=== PATIENT | female | born 1955 | race Caucasian/White ===

== ENCOUNTER → 2018-05-22 | Outpatient (CLI) | payer OTHER | LOC: M WHC 10:15 | DX: Z12.31 Encounter for screening mammogram for malignant neoplasm of breast (principal) | CPT/HCPCS: 77067 ==

== ENCOUNTER 2019-10-12 13:38 | Inpatient (IN) | payer OTHER ==
[~2019-10-12] VITALS: Ht 157.5 cm; Wt 108.3 kg
[2019-10-12] MEDS: amLODIPine 10 MG TAB PO SCH (09:00)
[2019-10-12] MEDS: FOLIC ACID 1 MG TAB PO SCH (09:00)
[2019-10-12] MEDS: SIMVASTATIN 40 MG TAB PO SCH (09:00)
[2019-10-12] MEDS ORDERED: PRED10TA2 PO ×2 (14:04)
[2019-10-12] MEDS ORDERED: SULI200T PO (14:04)
[2019-10-12] MEDS ORDERED: CHLO125TA PO (14:04)
[2019-10-12] MEDS ORDERED: METH2.5T48 PO (14:04)
[2019-10-12] MEDS ORDERED: LOTR10CA2 PO (14:04)
[2019-10-12] MEDS ORDERED: ALBU8.5H PO (14:04)
[2019-10-12] MEDS ORDERED: HYDR200T3 PO (14:04)
[2019-10-12] MEDS ORDERED: SIMV40TA20 PO (14:04)
[2019-10-12] MEDS ORDERED: FOLI1TAB11 PO (14:04)
[2019-10-12] MEDS ORDERED: LEVO750T13 PO (14:04)
[2019-10-12] MEDS ORDERED: NS 1,000 ML IV SCH (14:47)
[2019-10-12 14:57] LABS: CK-MB VALUE MASS < 1.0 NG/ML (<3.6); CPK CREATINE PHOSPHOKINASE 115 U/L (26-192); FREE T4 1.22 NG/DL (0.76-1.46); MB/CK RELATIVE INDEX 0.87 (< OR =4); THYROID STIMULATING HORMONE 0.663 uIU/ML (0.358-3.740); TROPONIN I < 0.02 NG/ML (< 0.10)
[2019-10-12] MEDS: NS 1,000 ML IV SCH ×2 (17:30→20:09)
[2019-10-12] MEDS ORDERED: ACETAMINOPHEN TAB 650MG DOSE (2X325MG) PO PRN (17:30)
[2019-10-12 17:59] LABS: INR 1.23; PROTHROMBIN TIME 15.2 SECONDS (11.8-14.0)
[2019-10-12 18:00] LABS: PARTIAL THROMBOPLASTIN TIME 35.4 SECONDS (25.0-38.4)
[2019-10-12 18:02] LABS: D-DIMER QUANT 2253.88 ng/ml (<500)
[2019-10-12 18:03] LABS: PLATELET COUNT, AUTOMATED 47 10^3/uL (150-450)
--- NOTE | 2019-10-12 18:05 | HPEPDOC ---
General Date of Admission Oct 12, 2019 at 17:29 Date of Service: Oct 12, 2019 Chief Complaint The patient is a 64-year-old female Who presented to the ER with progressive SOB / fever / chills History of Present Illness Patient is a 64-year-old female with past medical history of hypertension, dyslipidemia and rheumatoid arthritis who presented to the emergency room after experiencing a week of fevers, severe chills and shortness of breath. Patient reported that last Monday she had a sudden onset of fevers, shortness of breath and body chills. . She reported that she called telemedicine and was prescribed Tamiflu for suspected flu without testing. Patient completed a course of 5 days of Tamiflu. She continued to experience worsening fevers and progressive shortness of breath. Patient had reported that the highest temperature she had measured at home was 106.9F measured orally. Her checked her temperature this morning and was noted to be 98.6 orally. Patient had seen urgent care today with prescribed her Levaquin, Albuterol inhaler and Prednisone 10. She had taken all of this this morning, but failed to improve and came to the emergency room for further evaluation. Patient denies any chest pain or palpitations. Reports that her shortness of breath is progressive and she does report a cough that is minimally productive. She denies any blood or any color to her sputum Patient denies any vomiting but does report some nausea. Denies abdominal pain, constipation, diarrhea, or urinary discomfort. Reports that her appetite is poor over the last 7 days and denies any significant changes in her weight. Patient reports no recent travel and denies exposure dining with similar symptoms. Home Medications Scheduled Amlodipine Besylate/Benazepril (Lotrel 10-40 mg Capsule) 1 Each Capsule, 1 CAP PO DAILY, (Reported) Chlorthalidone (Chlorthalidone) 25 Mg Tablet, 25 MG PO DAILY, (Reported) Folic Acid (Folic Acid) 1 Mg Tablet, 1 MG PO DAILY, (Reported) Hydroxychloroquine Sulfate (Hydroxychloroquine Sulfate) 200 Mg Tablet, 400 MG PO DAILY, (Reported) Levofloxacin (Levofloxacin) 750 Mg Tablet, 750 MG PO DAILY, (Reported) Methotrexate Sodium (Methotrexate) 2.5 Mg Tablet, 20 MG PO 1XWK, (Reported) MONDAY Prednisone (Prednisone) 10 Mg Tablet, 20 MG PO BID, (Reported) Simvastatin (Simvastatin) 40 Mg Tablet, 40 MG PO DAILY, (Reported) Scheduled PRN Albuterol Sulfate (Albuterol Sulfate Hfa) 8.5 Gm Hfa.aer.ad, 2 PUFFS PO Q4H PRN for SOB/WHEEZING, (Reported) Sulindac (Sulindac) 200 Mg Tablet, 200 MG PO BID PRN for ARTHRITIS PAIN, STIFFNESS, (Reported) Allergies Coded Allergies: No Known Allergies (Unverified , 10/12/19) Past Medical History Medical History Hypertension, dyslipidemia and rheumatoid arthritis Surgical History Reports no prior surgeries Family History - Reports that her mother and father had a history of heart disease - No history of malignancies Social History - Denies the use of alcohol, tobacco or illicit drugs - Denies recent travel or sick contacts - Lives with in [place] - Occupation; 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 [employer] Review of Systems Other systems 10 point review of systems complete, all negative otherwise stated in HPI Vital Signs - Vitals: BP 162/84, HR 98, RR 24, Sat 92%RA, Temp 100.7 - General: Lying in bed, Short of breath, AAOx3 - HEENT: NC, AT, PERRLA - CVS: RRR, +S1S2 - Lungs: Fair air entry bilaterally, No appreciable wheezing / rales / rhonchi - Abdomen: Soft, Non-distended, No tenderness on palpation of all 4 quadrants - Extremities: No lower extremity edema, No calf tenderness - Neuro: No focal motor or sensory deficit - Skin: No visible rashes Laboratory Data Labs 24H Laboratory Tests 2 10/12/19 14:13: Prothrombin Time 15.2H, Prothromb Time International Ratio 1.23, Activated Partial Thromboplast Time 35.4, D-Dimer, Quantitative 2253.88H, Lactic Acid Level 1.3 10/12/19 14:33: Total Creatine Kinase 115, Creatine Kinase MB < 1.0, Creatine Kinase MB Relative Index 0.87, Troponin I < 0.02, Thyroid Stimulating Hormone (TSH) 0.663, Free Thyroxine 1.22 10/12/19 17:01: Urine Color HAKEEM, Urine Appearance HAZY, Urine pH 5.0, Urine Specific Fonda 1.014, Urine Protein NEGATIVE, Urine Glucose (UA) NEGATIVE, Urine Ketones NEGATIVE, Urine Blood 2+H, Urine Nitrite NEGATIVE, Urine Bilirubin NEGATIVE, Urine Urobilinogen 0.2, Urine Leukocyte Esterase TRACEH, Urine WBC (Auto) 17H, Urine RBC (Auto) 9H, Urine Hyaline Casts (Auto) 0, Urine Bacteria (Auto) 3+H, Urine Squamous Epithelial Cells 6, Urine Sperm (Auto) CBC/BMP Microbiology Microbiology 10/12/19 Virus Detection (PCR), Received Pending 10/12/19 Urine Culture, Received Pending 10/12/19 Respiratory Virus (PCR), Received Pending 10/12/19 Respiratory Virus Panel (PCR) (MANSI) - Final, Complete 10/12/19 Blood Culture, Received Pending 10/12/19 Blood Culture, Received Pending Plan / VTE VTE Prophylaxis Ordered?: Yes Plan Plan Shortness of breath - possibly 2/2 viral illness - Patient has presented to the ER after experiencing a week of recurrent fevers, chills and progressive shortness of breath - Patient remains hemodynamically stable and is febrile in the emergency room - Physical without any significant adventitious lung sounds - Profound leukocytosis with neutrophil predominance noted - UA without any significant signs of infection; urine culture pending - Respiratory panel 10/11: Negative - CXR 10/11: There is no acute cardiopulmonary disease. - CT chest 10/11: Likely sub-segmental atelectasis left upper lobe. No abnormal patchy ground-glass opacities - Will check Blood cultures, Sputum cultures, COVID19, Strep throat, Procalcitonin, MRSA screen - Will check ESR / CRP - Will start Ceftriaxone and Azithromycin for now PRASANTH - possibly 2/2 pre-renal etiology - 2/2 volume loss - 2/2 fevers - Patient baseline creatinine of 0.5; creatinine on admission of 1.7 - Will hold nephrotoxic medications - Will check renal US - Will start IV fluid hydration Thrombocytopenia - No evidence of bleeding - Will check DIC profile - Will treat for possible infection (As stated above) Normocytic anemia - Hg appears to be lower compared to baseline from 11/2014 of 13.7 - Will continue to monitor at this time Hypokalemia - Will supplement Elevated Bilirubin - Will check CT abdomen / pelvis - Will check US liver - Will check haptoglobin / jasper Hypertension - BP moderately elevated - Will hold Chlorthalidone / Benazapril for now (re: PRASANTH) - Will c/w Amlodipine DLP - c/w Simvastatin Rheumatoid arthritis - Will hold Hydroxychlorquine / Methotrexate at this time - Will check ESR / CRP DVT prophylaxis - Will start TEDs / BLANCA Garcia MD Oct 12, 2019 18:05
[2019-10-12 18:21] LABS: ERYTHROCYTE SEDIMENTATION RATE > 140 mm/hr (0-30)
[2019-10-12] MEDS ORDERED: LABETALOL HCL 100 MG/20 ML VIAL IV ONE (18:45)
[2019-10-12] MEDS ORDERED: POTASSIUM CHLORIDE 10 MEQ SR TABLET PO ONE (19:00)
--- NOTE | 2019-10-12 19:00 | REPVR ---
PROCEDURE INFORMATION: Exam: US Duplex Lower Extremity Veins Exam date and time: 10/12/2019 6:20 PM Age: 64 years old Clinical indication: Leg, lower; Bilateral; Patient HX: PT states no pain or swelling in legs; Additional info: Evaluate for dvt TECHNIQUE: Imaging protocol: Real-time duplex ultrasound of the Lower Extremities with 2-D maldonado scale, color Doppler flow and spectral waveform analysis with image documentation. Complete exam focused on the bilateral lower extremity veins. COMPARISON: No relevant prior studies available. FINDINGS: Right deep veins: Unremarkable. The common femoral, femoral, and popliteal veins are patent without thrombus. Normal compressibility, augmentation response and Doppler waveforms. Right superficial veins: Saphenofemoral junction is patent without thrombus. Left deep veins: Unremarkable. The common femoral, femoral, and popliteal veins are patent without thrombus. Normal compressibility, augmentation response and Doppler waveforms. Left superficial veins: Saphenofemoral junction is patent without thrombus. IMPRESSION: No deep vein thrombosis in the veins visualized in both lower extremities. Electronically signed by: Eduardo Campbell On 10/12/2019 18:59:45 PM
[2019-10-12] MEDS: AZITHROMYCIN INJ 500 MG, VIAL MATE ADAPTER 1 EACH in D5W 250 ML IV SCH (19:02)
--- NOTE | 2019-10-12 19:02 | IPNPDOC ---
Text Note Date of Service The patient was seen on 10/12/19. NOTE Called and discussed case with Oncology, Dr. Brian Coello, about the potential th ought of TTP given Uremia, Anemia, Thrombocytopenia, Fevers ... but no AMS Work up for TTP is pending at this time; LDH / Haptoglobin / Valente pending At this time advised to hold off on transfer until it becomes clear this is TTP. Will repeat CBC / CMP now to evaluate renal function improvement / anemia / peripheral smear / adams13 activity VS,Fishbone, I+O VS, Fishbone, I+O Laboratory Tests 10/12/19 14:13 Vital Signs Date Time Temp Pulse Resp B/P (MAP) Pulse Ox O2 Delivery O2 Flow Rate FiO2 10/12/19 15:36 98 10/12/19 15:20 162/84 (110) 10/12/19 15:10 92 10/12/19 14:18 Room Air 10/12/19 14:18 99.6 10/12/19 13:38 26 BLANCA JI MD Oct 12, 2019 19:02
--- NOTE | 2019-10-12 19:09 | REPVR ---
PROCEDURE INFORMATION: Exam: CT Abdomen And Pelvis Without Contrast Exam date and time: 10/12/2019 6:50 PM Age: 64 years old Clinical indication: Abnormal findings; Abnormal lab test; Elevated liver enzymes; Additional info: Elevated bilirubin / alk phos TECHNIQUE: Imaging protocol: Computed tomography of the abdomen and pelvis without contrast. Radiation optimization: All CT scans at this facility use at least one of these dose optimization techniques: automated exposure control; mA and/or kV adjustment per patient size (includes targeted exams where dose is matched to clinical indication); or iterative reconstruction. COMPARISON: No relevant prior studies available. FINDINGS: Lungs: The imaged portions of the lung bases are clear. Heart: No cardiomegaly is noted. There is a trace pericardial effusion. Diaphragm: Intact. Liver: Unremarkable. No liver lesion is identified. The contour of the liver is smooth. No hepatomegaly is noted. Gallbladder and bile ducts: No calcified gallstones are noted. There is mild inflammatory fat stranding around the gallbladder, which can be seen with cholecystitis (images 42-50 of the coronal series 202). No dilation of the intrahepatic or extrahepatic bile ducts is noted. Pancreas: Unremarkable. No dilation of the main pancreatic duct is noted. There is no inflammatory fat stranding around the pancreas to suggest acute pancreatitis. Spleen: Unremarkable. No splenomegaly is noted. Adrenals: Normal. No adrenal mass is noted. Kidneys and ureters: There are benign-appearing cysts in the left kidney measuring up to 5.2 cm for which follow-up is not necessary. There is mild left hydroureteronephrosis. No stones are noted in the kidneys or ureters. Stomach and bowel: There is no evidence for a bowel obstruction, diverticulosis, diverticulitis, colitis, perforated viscus, pneumatosis intestinalis, intussusception, or volvulus. Appendix: The retrocecal appendix is normal. No evidence for appendicitis. Intraperitoneal space: No free air. No fluid collection. Retroperitoneal space: No fluid collection. No mass. Vasculature: There is no abdominal aortic aneurysm or intramural hematoma. There are mild atherosclerotic calcifications. Lymph nodes: No enlarged lymph nodes. Bladder: There is a 4 mm calculus in the urinary bladder just distal to the left ureterovesical junction. Reproductive: The uterus is anteverted. The ovaries are unremarkable. Bones/joints: No fracture or dislocation is noted. There is no suspicious osteolytic or osteoblastic lesion. There is a mild levoscoliosis at the thoracolumbar junction and degenerative changes in the lower thoracic spine and in the lumbar spine. There is mild osteoarthritis of the right hip joint. Soft tissues: There are small bilateral fat containing indirect inguinal hernias. IMPRESSION: 1. 4 mm calculus in the urinary bladder just distal to the left ureterovesical junction and mild left hydroureteronephrosis. 2. Mild inflammatory fat stranding around the gallbladder, which can be seen with cholecystitis. 3. Small bilateral fat containing indirect inguinal hernias. Electronically signed by: Eduardo Campbell On 10/12/2019 19:09:50 PM
[2019-10-12 20:00] VITALS: O2SAT 96
--- NOTE | 2019-10-12 20:21 | REPVR ---
PROCEDURE INFORMATION: Exam: US Abdomen Complete Exam date and time: 10/12/2019 8:01 PM Age: 64 years old Clinical indication: Abnormal findings; Abnormal lab test; Abnormal kidney function lab tests and elevated liver enzymes; Additional info: Elevated bilirubin / baldomero TECHNIQUE: Imaging protocol: Real-time ultrasound of the abdomen with image documentation. COMPARISON: CT ABD PELVIS W/O CONTRAST 10/12/2019 6:38 PM FINDINGS: Liver: The echogenicity of the liver is increased, which is compatible with fatty liver infiltration. No liver lesion is identified from the images obtained. The contour of the liver is smooth. Gallbladder: Normal. No gallstones, masses, sonographic Dupont's sign, gallbladder wall thickening, or pericholecystic fluid. Common bile duct: No dilation (2 mm in diameter). No stones are identified in the imaged portion of the common bile duct. Pancreas: The visualized portion of the pancreas is unremarkable. Right kidney: The right kidney is normal in appearance and measures 12.8 cm in length. There is no renal cortical thinning. The renal cortical echogenicity is within normal limits. No renal lesion is seen. There is no hydronephrosis. No obvious stones are seen in the renal collecting system. Left kidney: The left kidney measures 12.5 cm in length and contains several benign-appearing cysts, the largest measuring 5.2 cm x 3.6 cm x 2.5 cm for which follow-up is not necessary. There is mild left hydronephrosis. Spleen: Unremarkable. No splenomegaly. The spleen measures 12.6 cm. Aorta: The imaged upper abdominal aorta is normal in caliber. Inferior vena cava: The imaged portion of the inferior vena cava at the level of the liver is patent. Intraperitoneal space: No free fluid is seen from the images obtained. IMPRESSION: 1. Fatty liver. 2. Normal ultrasound of the gallbladder. 3. Mild left hydronephrosis. COMMENTS: Consistent with the [employer]'s Incidental Findings Committee white paper (J Am Fili Radiol 2018): Any incidental cystic renal lesion classified in this report as too small to characterize or simple appearing is likely a benign cyst. No follow-up imaging is recommended for these lesions per consensus recommendations based on imaging criteria. Electronically signed by: Eduardo Campbell On 10/12/2019 20:21:13 PM
[2019-10-12 20:35] VITALS: BP 119/63
[2019-10-12 20:37] LABS: BILIRUBIN,DIRECT 2.8 MG/DL (0.0-0.2); LDH LACTATE DEHYDROGENASE 234 U/L (84-246)
[2019-10-12 21:00] VITALS: O2SAT 94
[2019-10-12] MEDS: cefTRIAXone SOD 1 GM in D5W MINI-BAG PLUS 50 ML IV SCH (21:13)
[2019-10-12 21:20] LABS: HEMOGLOBIN 11.3 g/dl (12.0-15.5); MEAN CORPUSCULAR HEMOGLOBIN 32.4 pg (27.0-33.0); MEAN CORPUSCULAR HGB CONC 35.3 g/dl (32.0-36.5); MEAN CORPUSCULAR VOLUME 91.7 fl (80.0-96.0); RED BLOOD COUNT 3.49 10^6/uL (4.00-5.40); WHITE BLOOD COUNT 24.4 10^3/uL (4.0-10.0)
[2019-10-12 21:23] LABS: PLATELET COUNT, AUTOMATED 32 10^3/uL (150-450)
[2019-10-12 21:42] LABS: LYMPHOCYTES 3 % (16-44); MONOCYTES 2 % (0-5); NEUTROPHILS 93 % (28-66); PLATELET ESTIMATE MARKED DECREASE (NORMAL); TOXIC VACUOLATION 2+
[2019-10-12 22:00] VITALS: O2SAT 93
[2019-10-12 22:03] LABS: BLOOD UREA NITROGEN 63 MG/DL (7-18); CARBON DIOXIDE LEVEL 25 MEQ/L (21-32); CHLORIDE LEVEL 104 MEQ/L (98-107); CK-MB VALUE MASS < 1.0 NG/ML (<3.6); CPK CREATINE PHOSPHOKINASE 58 U/L (26-192); CREATININE FOR GFR 1.52 MG/DL (0.55-1.30); GLOMERULAR FILTRATION RATE 36.9 (>45); GLUCOSE, FASTING 223 MG/DL (70-100); MB/CK RELATIVE INDEX 1.72 (< OR =4); POTASSIUM SERUM 3.9 MEQ/L (3.5-5.1); SODIUM LEVEL 138 MEQ/L (136-145); TROPONIN I < 0.02 NG/ML (< 0.10)
[2019-10-12] MEDS: metroNIDAZOLE 500 MG in IV 1 EA IV SCH (22:39)
[2019-10-12 23:00] VITALS: O2SAT 94
[2019-10-13] VITALS (11 sets, daily range): BP systolic 97–148; BP diastolic 54–76; O2SAT 90–95
[2019-10-13 01:39] LABS: BASO # 0.1 10^3/uL (0.0-0.2); BASO % 0.3 % (0.0-1.0); LYMPH # 0.9 10^3/uL (1.5-5.0); LYMPH % 4.2 % (24.0-44.0); MEAN CORPUSCULAR HEMOGLOBIN 31.8 pg (27.0-33.0); MEAN CORPUSCULAR HGB CONC 34.4 g/dl (32.0-36.5); MEAN CORPUSCULAR VOLUME 92.5 fl (80.0-96.0); MONO # 0.3 10^3/uL (0.0-0.8); MONO % 1.3 % (0.0-5.0); NEUTROPHILS # 19.8 10^3/uL (1.5-8.5); NEUTROPHILS % 93.4 % (36.0-66.0); RED BLOOD COUNT 3.46 10^6/uL (4.00-5.40); WHITE BLOOD COUNT 21.2 10^3/uL (4.0-10.0)
[2019-10-13 01:42] LABS: PLATELET COUNT, AUTOMATED 27 10^3/uL (150-450)
[2019-10-13 02:11] LABS: CK-MB VALUE MASS < 1.0 NG/ML (<3.6); CPK CREATINE PHOSPHOKINASE 45 U/L (26-192); MB/CK RELATIVE INDEX 2.22 (< OR =4); TROPONIN I < 0.02 NG/ML (< 0.10)
--- NOTE | 2019-10-13 03:33 | IPNPDOC ---
Text Note Date of Service The patient was seen on 10/13/19. NOTE SUBJECTIVE: Case being closely monitored for potential of TTP and need for transfer for higher level of care. Repeat platelet count returned at 27, down from 47 at the time of admission. Patient stable without any signs of bleeding, oozing or bruising. Patient has remained afebrile without any altered mental status. OBJECTIVE: Leukocytosis of 21.2, H&H of 11/32, MCV of 92.5, platelet count of 27, reticulocyte % of 0.3, haptoglobin pending. BUN/Cr of 63/1.52, improvement from 62/1.7 on admission. Total bilirubin of 4.7, direct bilirubin of 2.8. AST/ALT the of 37/36, LDH of 234. PT/INR of 15.2/1.23. PTT of 35.4. Fibrinogen 1083, d-dimer 2253.8, [id number] pending. Direct Valente negative. Peripheral smear pending. A/P: #Thrombocytopenia PLASMIC Score for TTP: Score of 5, indicating intermediate risk of severe [id number] deficiency, scores of 4-5 predict other disorder such as DITMA, DIC or HUS. DIC unlikely given elevation of fibrinogen. Contacted oncology, Dr. Coello, to discuss the recent drop in platelet count. Reviewed returned labs. Still unclear whether this is TTP and requires transfer for plasmapheresis. Continue to trend LDH, Coags, CBC, liver and renal function. Oncology will see the patient first thing in the morning. Advised to continue assessment for bruising/bleeding. If so, high dose steroids be initiated. VS,Fishbone, I+O VS, Fishbone, I+O Laboratory Tests 10/12/19 14:13 10/12/19 21:03 10/13/19 01:25 Vital Signs Date Time Temp Pulse Resp B/P (MAP) Pulse Ox O2 Delivery O2 Flow Rate FiO2 10/13/19 00:00 91 Room Air 10/13/19 00:00 97.2 87 18 97/54 (68) I&O- Last 24 Hours up to 6 AM 10/13/19 05:59 Intake Total 650 ml Output Total 275 ml Balance 375 ml GRECIA ROUSSEAU DO Oct 13, 2019 03:33
[2019-10-13] MEDS: metroNIDAZOLE 500 MG in IV 1 EA IV SCH ×3 (05:22→21:32)
[2019-10-13 06:25] LABS: HEMATOCRIT 31.7 % (36.0-47.0); HEMOGLOBIN 11.1 g/dl (12.0-15.5); MEAN CORPUSCULAR HEMOGLOBIN 32.6 pg (27.0-33.0); RED BLOOD COUNT 3.41 10^6/uL (4.00-5.40); WHITE BLOOD COUNT 18.5 10^3/uL (4.0-10.0)
[2019-10-13 06:28] LABS: PLATELET COUNT, AUTOMATED 29 10^3/uL (150-450)
[2019-10-13 06:44] LABS: C REACTIVE PROTEIN QUANTITATIV 17.9 MG/DL (0.00-0.30); CALCIUM LEVEL 8.1 MG/DL (8.8-10.2); CREATININE FOR GFR 1.41 MG/DL (0.55-1.30); GLOMERULAR FILTRATION RATE 40.2 (>45); MAGNESIUM LEVEL 2.4 MG/DL (1.8-2.4)
[2019-10-13 07:00] LABS: LYMPHOCYTES 5 % (16-44); MONOCYTES 1 % (0-5); NEUTROPHILS 93 % (28-66)
[2019-10-13 07:01] LABS: DOHLE BODIES 1+; PLATELET ESTIMATE MARKED DECREASE (NORMAL); TOXIC VACUOLATION 2+
[2019-10-13 08:11] LABS: ALBUMIN 1.8 GM/DL (3.2-5.2); BILIRUBIN,DIRECT 1.5 MG/DL (0.0-0.2); BILIRUBIN,TOTAL 1.8 MG/DL (0.2-1.0); TOTAL PROTEIN 5.2 GM/DL (6.4-8.2)
[2019-10-13] MEDS: NS 1,000 ML IV SCH ×2 (08:15→17:03)
[2019-10-13] MEDS: SIMVASTATIN 40 MG TAB PO SCH (08:15)
[2019-10-13] MEDS: amLODIPine 10 MG TAB PO SCH (08:15)
[2019-10-13] MEDS: FOLIC ACID 1 MG TAB PO SCH (08:15)
--- NOTE | 2019-10-13 09:15 | IPNPDOC ---
Text Note Date of Service The patient was seen on 10/13/19. NOTE Subjective: Patient is a 64-year-old female with past medical history of hypertension, dyslipidemia and rheumatoid arthritis who presented to the emergen cy room after experiencing a week of fevers, severe chills and shortness of breath. Patient reported that last Monday (10/03) she had a sudden onset of fevers, shortness of breath and body chills. . She reported that she called telemedicine and was prescribed Tamiflu for suspected flu without testing. Patient completed a course of 5 days of Tamiflu. She continued to experience worsening fevers and progressive shortness of breath. Patient had seen urgent care on 10/11, and was prescribed Levaquin , Albuterol inhaler and Prednisone 10mg. She had taken all of this once at 10/11 AM, but failed to improve and came to the emergency room for further evaluation. Patient reports no recent travel and denies exposure dining with similar symptoms. Patient was seen and examined at the bedside. . The patient reports that she's feeling better. She denies any significant shortness of breath upon rest. She does report a mild cough again has denied nausea, vomiting, abdominal pain, diarrhea or constipation. Patient reports that she is urinating without any difficulty. Objective: Vitals (See below) General: Lying in bed, no acute distress, comfortable, AAOx3 HEENT: NC, AT CVS: RRR, +S1S2 Lungs: Fair air entry b/l, auscultation is free of any rhonchi, rales or wheezing Abdomen: Soft, ND, NT Extremities: - Edema, - Calf tenderness Assessment and plan: Leukocytosis / Shortness of breath - possibly 2/2 viral illness, possibly 2/2 acalculous cholecystitis - Patient has presented to the ER after experiencing a week of recurrent fevers, chills and progressive shortness of breath - Today, patient reports that her breathing is doing significantly better - Remains hemodynamically stable and has been afebrile for 24 hours - Patient was currently on room air saturating at 96% during exam - Again physical does not reveal any adventitious lung sounds - Leukocytosis is improving; CRP trending down - UA without any significant signs of infection; urine culture pending - Respiratory panel 10/11: Negative - MRSA screen 10/11: negative - CXR 10/11: There is no acute cardiopulmonary disease. - CT chest 10/11: Likely sub-segmental atelectasis left upper lobe. No abnormal patchy ground-glass opacities - CXR 10/12 - report pending; currently appears relatively unchanged - Blood cultures, Sputum cultures, COVID19, Procalcitonin - remain pending - c/w Ceftriaxone, Azithromycin & Flagyl (Day #2) Elevated Bilirubin - possibly 2/2 acute cholecystitis - CT abdomen / pelvis 10/11: 1. 4 mm calculus in the urinary bladder just distal to the left ureterovesical junction and mild left hydroureteronephrosis. 2. Mild inflammatory fat stranding around the gallbladder, which can be seen with cholecystitis. 3. Small bilateral fat containing indirect inguinal hernias. - US liver 10/11: 1. Fatty liver. 2. Normal ultrasound of the gallbladder. 3. Mild left hydronephrosis. - Haptoglobin / jasper - Pending - Added coverage for intra-abdominal infection with Flagyl (Day #2) - Will consult surgery; Dr. Klein PRASANTH - possibly 2/2 pre-renal etiology - 2/2 volume loss - 2/2 fevers - Patient baseline creatinine of 0.5; creatinine on admission of 1.7 - Cr currently is trending down with IV hydration - Will hold nephrotoxic medications - Renal US 10/11: with evidence of mild L hydronephrosis - c/w IV fluid hydration Thrombocytopenia - possibly 2/2 severe infection, unlikely 2/2 TTP - No evidence of bleeding - Fibrinogen level noted to be elevated; unlikely 2/2 DIC - LDH levels normal - Will treat for possible infection (As stated above) - Dr. Brian Coello on consultation; appreciate their input Normocytic anemia - Hg appears to be lower compared to baseline from 11/2014 of 13.7 - Hg has remained stable with IV fluid hydration - Will continue to monitor at this time s/p Hypokalemia Hypertension - BP well controlled - Will hold Chlorthalidone / Benazapril for now (re: PRASANTH) - c/w Amlodipine DLP - c/w Simvastatin Rheumatoid arthritis - Will hold Hydroxychloroquine / Methotrexate at this time - Continue to trend CRP DVT prophylaxis - c/w TEDs / Sequentials (re: Thrombocytopenia) VS,Fishbone, I+O VS, Fishbone, I+O Laboratory Tests 10/12/19 14:13 10/12/19 21:03 10/13/19 01:25 10/13/19 05:57 Vital Signs Date Time Temp Pulse Resp B/P (MAP) Pulse Ox O2 Delivery O2 Flow Rate FiO2 10/13/19 08:15 90 119/69 10/13/19 08:00 96.7 18 91 Room Air 10/13/19 06:00 4.0 I&O- Last 24 Hours up to 6 AM 10/13/19 06:00 Intake Total 1400 ml Output Total 525 ml Balance 875 ml BLANCA JI MD Oct 13, 2019 09:15
--- NOTE | 2019-10-13 10:51 | REP ---
REASON: Dyspnea and fever. There are no prior CTs for comparison. There is a slight pericardial effusion with increased fluid seen in the superior pericardial recess. There is no pleural effusion. The imaged upper abdomen and imaged osseous structures are within normal limits. Although seen in a limited fashion due to the lack of intravenous contrast administration, the pulmonary maria and mediastinum are within normal limits. Evaluation of the lung bass shows a few curvilinear and somewhat patchy opacities in the inferior aspect of the left upper lobe abutting the superior lingula. No abnormal patchy ground glass opacities are present. No significant nodules are present. IMPRESSION: 1. Likely subsegmental atelectatic and/or fibrotic changes seen in the left lung, as described above. Certainly, changes from early pneumonia cannot be ruled out. 2. There is a slight pericardial effusion. 3. Other findings and limitations, as described above. Unreviewed
--- NOTE | 2019-10-13 13:51 | REP ---
REASON: Hypoxia. PRIORS: None. Today's exam is compared to 10/12/2019. The technique utilized in obtaining the radiograph has magnified the cardiac silhouette and accentuated the interstitial markings. The cardiac silhouette is magnified by technique. Mild cardiomegaly cannot be excluded. The lung bass are clear. The pleural angles are sharp. The osseous structures are within normal limits. IMPRESSION: Technique, as described above. No evidence of acute cardiopulmonary disease. Electronically Signed by Jonnathan Matos DO 10/13/2019 01:53 P
[2019-10-13 13:55] LABS: HEMATOCRIT 33.3 % (36.0-47.0); HEMOGLOBIN 11.4 g/dl (12.0-15.5); MEAN CORPUSCULAR HEMOGLOBIN 32.1 pg (27.0-33.0); MEAN CORPUSCULAR HGB CONC 34.2 g/dl (32.0-36.5); MEAN CORPUSCULAR VOLUME 93.8 fl (80.0-96.0); RED BLOOD COUNT 3.55 10^6/uL (4.00-5.40); WHITE BLOOD COUNT 20.1 10^3/uL (4.0-10.0)
[2019-10-13 13:56] LABS: PLATELET COUNT, AUTOMATED 28 10^3/uL (150-450)
[2019-10-13 14:11] LABS: ANISOCYTOSIS 1+; LYMPHOCYTES 8 % (16-44); MONOCYTES 4 % (0-5); NEUTROPHILS 88 % (28-66); PLATELET ESTIMATE MARKED DECREASE (NORMAL)
[2019-10-13 14:13] LABS: COMPLEMENT C3 134 MG/DL (90-180); COMPLEMENT C4 32 MG/DL (10-40); TOTAL PROTEIN 5.6 GM/DL (6.4-8.2)
[2019-10-13 14:18] LABS: ALBUMIN 1.9 GM/DL (3.2-5.2); BILIRUBIN,TOTAL 1.5 MG/DL (0.2-1.0); CALCIUM LEVEL 8.3 MG/DL (8.8-10.2); CREATININE FOR GFR 1.29 MG/DL (0.55-1.30); GLOMERULAR FILTRATION RATE 44.6 (>45); MAGNESIUM LEVEL 2.6 MG/DL (1.8-2.4); POTASSIUM SERUM 3.7 MEQ/L (3.5-5.1); TOTAL PROTEIN 6.5 GM/DL (6.4-8.2)
--- NOTE | 2019-10-13 16:12 | CR ---
DATE OF CONSULTATION: 10/13/2019 DIAGNOSIS: Thrombocytopenia, acute renal failure, anemia. Suspicion for thrombotic microangiopathy REQUESTING PHYSICIAN: Hugo Napoles M.D. HISTORY OF PRESENT ILLNESS: Rebeca Waddell is a 64-year-old woman followed for 10 years at [facility] in [place] for rheumatoid arthritis. At baseline, she takes Plaquenil and methotrexate. She stopped these spontaneously about 10 days ago when she, in fairly rapid order, developed a malaise, fever at home and overwhelming fatigue. She reports "always having a cough," but no new cough. She denies shortness of breath, just overwhelming fatigue and sometimes a little breathlessness because of fatigue. She stopped taking her medicines about 10 days ago just because she felt so poorly and then, one day ago, presented to the emergency room. On admission, her temperature was 100.7, normal blood pressure, tachycardic to 116, pulse oximetry 93% on room air. She reported temperatures as high as possibly 106 or 100.6 at home. Labs were notable for new thrombocytopenia, with platelet count 47, and new anemia, hemoglobin 11, versus most recent prior complete blood count (CBC) in our system in 2014 showing hemoglobin 13.7, platelets 246. Rebeca denies ever being diagnosed with low platelets or anemia. She denies having a crossover or mixed connective tissue disorder and says her diagnosis has been rheumatoid arthritis followed many years and stable with mostly hand symptoms, including subcutaneous nodules in the left hand.. Chest x-ray on admission showed a normal cardiac silhouette and no acute abnormalities. Chest CT showed some possible fibrotic changes in the left lung, some patchy opacities left upper lobe. No nodule. Abdomen/pelvis CT showed a 4 mm urinary bladder calculus and gallbladder fat stranding, which could be seen with cholecystitis and bilateral fat inguinal hernias. Abdomen ultrasound with fatty liver, normal gallbladder, mild left hydronephrosis. Other notable labs on admission: Normal LDH, creatinine 1.7, with GFR 32 down from normal, greater than 60 GFR in 2015, normal lactic acid, total bilirubin 4.7, normal AST, ALT, alkaline phosphatase 396, albumin 2 (down from 4 in 2015). Repeat labs today showed total bilirubin 1.8, direct 1.5, alkaline phosphatase 275, CRP is 18, erythrocyte sedimentation rate greater than 140, low reticulocyte count, high fibrinogen 1083, high D-dimer 2200, PT elevated 15, INR/PTT normal, 2+ blood in urine, 3+ bacteria At the bedside, Rebeca is slightly drowsy but wakens and is fully alert and awake and oriented. She denies pain. She reports feeling "much, much better." PAST MEDICAL HISTORY: 1. Hypertension. 2. Dyslipidemia. 3. Rheumatoid arthritis mainly involving hands. 4. Subcutaneous nodules. PAST SURGICAL HISTORY: Negative. HOME MEDICATIONS: - amlodipine/benazepril 10/40 daily - chlorthalidone 25 mg daily - folic acid 1 mg daily - hydroxychloroquine 200 mg two tablets daily - methotrexate 20 mg weekly - prednisone 20 mg twice a day for flares - simvastatin 40 mg daily ALLERGIES: No known drug allergies. FAMILY HISTORY: No malignancy. SOCIAL HISTORY: Nonsmoker, , lives with her . Works at [employer] in [place] [employer]. REVIEW OF SYSTEMS: A 10 point review completed, pertinent positives and negatives as noted above. In addition, the patient denies rash, joint swelling in any other joints, any new back pain, headache, confusion, falls. FOCUSED PHYSICAL EXAMINATION: Temperature 97, blood pressure 127/73, heart rate 89, respiratory 20, oxygen saturation 96%. Patient is generally a healthy-appearing older woman reclining in bed. RESPIRATORY: Clear lungs throughout the lung bass. No wheezes, rales or rubs. CARDIAC: S1, S2. Regular rate and rhythm. No murmur, no gallop. ABDOMEN: Soft, nontender, nondistended. No hepatosplenomegaly. EXTREMITIES: No pedal edema or asymmetry. SKIN: No rash, petechiae or ecchymoses. LYMPH NODES: No submandibular, cervical or axillary adenopathy. LABORATORY DATA: As noted. IMPRESSION: A 64-year-old woman with longstanding rheumatoid arthritis on longstanding disease modifying agents and prednisone admitted with febrile illness, malaise, new thrombocytopenia, new renal insufficiency, hypoalbuminemia, anemia and elevated bilirubin, symptomatically recovering on antibiotics including metronidazole, ceftriaxone, azithromycin. No recent travel history. No dry cough. I was called to assess whether this patient may have thrombotic thrombocytopenic purpura (TTP). The elevated D-dimer and fibrinogen and PT are less consistent with this, in addition to the normal LDH. The patient has a very high sedimentation rate and C-reactive protein, and together with her coagulopathy, appears to be in disseminated intravascular coagulation (DIC), possibly related to her underlying rheumatoid arthritis, possibly infection related. I reviewed the peripheral smear and see no schistocytes, only a possible helmet cell or two. No rouleaux. The patient's new hypoalbuminemia, anemia and thrombocytopenia could reflect a separate hematologic process, such as multiple myeloma, and it is reasonable to test for these. 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 PLAN: 1. Would continue close observation with the following additional testing: Serum protein electrophoresis (SPEP), urine protein electrophoresis (UPEP), serum free light chains, quantitative immunoglobulins, beta-2 microglobulin, CH50, C3, C4, homocysteine, and methylmalonic acid (these latter addressing a possible microangiopathic hemolytic anemia, though again, with no schistocytes, this is less likely) Finally a ADAMTS 13 and hemolytic uremic syndrome (HUS), in the presence of normal or elevated haptoglobin, and greater than 10 ADAMTS 13, thrombotic thrombocytopenic purpura (TTP) is vanishingly unlikely. I have placed the lab orders for those I recommended today and will continue to follow. Thank you for this consult. NOAH
[2019-10-13] MEDS: AZITHROMYCIN INJ 500 MG, VIAL MATE ADAPTER 1 EACH in D5W 250 ML IV SCH (17:03)
[2019-10-13] MEDS: cefTRIAXone SOD 1 GM in D5W MINI-BAG PLUS 50 ML IV SCH (20:00)
[2019-10-14] VITALS (21 sets, daily range): BP systolic 123–157; BP diastolic 61–82; O2SAT 89–98
[2019-10-14] MEDS: NS 1,000 ML IV SCH (04:04)
[2019-10-14] MEDS: metroNIDAZOLE 500 MG in IV 1 EA IV SCH (05:50)
[2019-10-14 05:51] LABS: BASO % 0.2 % (0.0-1.0); EOS # 0.1 10^3/uL (0.0-0.5); EOS % 0.4 % (0.0-3.0); HEMOGLOBIN 11.5 g/dl (12.0-15.5); LYMPH # 1.5 10^3/uL (1.5-5.0); LYMPH % 8.1 % (24.0-44.0); MEAN CORPUSCULAR HEMOGLOBIN 32.6 pg (27.0-33.0); MEAN CORPUSCULAR HGB CONC 34.8 g/dl (32.0-36.5); MEAN CORPUSCULAR VOLUME 93.5 fl (80.0-96.0); MONO # 1.3 10^3/uL (0.0-0.8); MONO % 6.6 % (0.0-5.0); NEUTROPHILS # 15.8 10^3/uL (1.5-8.5); NEUTROPHILS % 83.4 % (36.0-66.0); RED BLOOD COUNT 3.53 10^6/uL (4.00-5.40); WHITE BLOOD COUNT 18.9 10^3/uL (4.0-10.0)
[2019-10-14 05:52] LABS: PLATELET COUNT, AUTOMATED 34 10^3/uL (150-450)
[2019-10-14 06:13] LABS: BLOOD UREA NITROGEN 42 MG/DL (7-18); CALCIUM LEVEL 8.3 MG/DL (8.8-10.2); CARBON DIOXIDE LEVEL 24 MEQ/L (21-32); CHLORIDE LEVEL 110 MEQ/L (98-107); CREATININE FOR GFR 0.99 MG/DL (0.55-1.30); GLOMERULAR FILTRATION RATE > 60.0 (>45); GLUCOSE, FASTING 154 MG/DL (70-100); POTASSIUM SERUM 3.8 MEQ/L (3.5-5.1); SODIUM LEVEL 141 MEQ/L (136-145)
--- NOTE | 2019-10-14 07:20 | ECGEPIP ---
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
[2019-10-14] MEDS: SIMVASTATIN 40 MG TAB PO SCH (08:37)
[2019-10-14] MEDS: FOLIC ACID 1 MG TAB PO SCH (08:37)
[2019-10-14] MEDS: amLODIPine 10 MG TAB PO SCH (08:37)
--- NOTE | 2019-10-14 10:42 | IPNPDOC ---
Text Note Date of Service The patient was seen on 10/14/19. NOTE Subjective: Patient is a 64-year-old female with past medical history of hypertension, dyslipidemia and rheumatoid arthritis who presented to the emergen cy room after experiencing a week of fevers, severe chills and shortness of breath. Patient reported that last Monday (10/03) she had a sudden onset of fevers, shortness of breath and body chills. . She reported that she called telemedicine and was prescribed Tamiflu for suspected flu without testing. Patient completed a course of 5 days of Tamiflu. She continued to experience worsening fevers and progressive shortness of breath. Patient had seen urgent care on 10/11, and was prescribed Levaquin , Albuterol inhaler and Prednisone 10mg. She had taken all of this once at 10/11 AM, but failed to improve and came to the emergency room for further evaluation. Patient reports no recent travel and denies exposure dining with similar symptoms. Patient was seen and examined at the bedside. Currently patient reports that her breathing is doing better. Denies any significant cough. Denies any CP or pa lpitations. Denies any N/V, abdominal discomfort or diarrhea. Notes that she had a BM this morning, reported as loose, not watery. Objective: Vitals (See below) General: Lying in bed, no acute distress, comfortable, AAOx3 HEENT: NC, AT CVS: +S1S2 Lungs: Air entry appears to be fair bilaterally without auscultated rhonchi, wheezing or crackles Abdomen: Again abdomen has remained soft, without any distention or tenderness Extremities: Lower extremities are free of any pitting edema, - Calf tenderness Assessment and plan: Leukocytosis / Shortness of breath - possibly 2/2 viral illness, possibly 2/2 acalculous cholecystitis - This point patient denies any shortness of breath, chest pain, nausea, vomiting or abdominal discomfort - Physical unrevealing - Hemodynamically stable / Afebrile - Leukocytosis / CRP trending down - Procalcitonin of 50.88 - UA without any significant signs of infection; urine culture negative - Respiratory panel 10/11: Negative; MRSA screen 10/11: negative - COVID19 - remain pending (unlikely positive at this point) - Blood cultures 10/11: Negative at 24 hours - CXR 10/11: There is no acute cardiopulmonary disease. - CT chest 10/11: Likely sub-segmental atelectasis left upper lobe. No abnormal patchy ground-glass opacities - CXR 10/12 - report pending; currently appears relatively unchanged - Will start Cefdinir and Flagyl PO; Will DC Ceftriaxone, Azithromycin & Flagyl IV (Day #3) Elevated Bilirubin - possibly 2/2 acute cholecystitis - CT abdomen / pelvis 10/11: 1. 4 mm calculus in the urinary bladder just distal to the left ureterovesical junction and mild left hydroureteronephrosis. 2. Mild inflammatory fat stranding around the gallbladder, which can be seen with cholecystitis. 3. Small bilateral fat containing indirect inguinal hernias. - US liver 10/11: 1. Fatty liver. 2. Normal ultrasound of the gallbladder. 3. Mild left hydronephrosis. - Haptoglobin / jasper - Pending - c/w intra-abdominal coverage of infection (See above) - Dr. Klein on consult; appreciate their input PRASANTH - possibly 2/2 pre-renal etiology - 2/2 volume loss - 2/2 fevers - Patient baseline creatinine of 0.5; creatinine on admission of 1.7 - Cr currently is trending down with IV hydration - Will hold nephrotoxic medications - Renal US 10/11: with evidence of mild L hydronephrosis - Will DC IV fluid hydration Thrombocytopenia - possibly 2/2 severe infection, unlikely 2/2 TTP - No evidence of bleeding - Fibrinogen level noted to be elevated; unlikely 2/2 DIC - LDH levels normal - Will treat for possible infection (As stated above) - Dr. Brian Coello on consultation; appreciate their input Normocytic anemia - Hg appears to be lower compared to baseline from 11/2014 of 13.7 - Hg has remained stable with IV fluid hydration - Will continue to monitor at this time s/p Hypokalemia Hypertension - BP well controlled - Will hold Chlorthalidone / Benazepril for now (re: PRASANTH) - c/w Amlodipine DLP - c/w Simvastatin Rheumatoid arthritis - Will hold Hydroxychloroquine / Methotrexate at this time - Continue to trend CRP DVT prophylaxis - c/w TEDs / Sequentials (re: Thrombocytopenia) VS,Fishbone, I+O VS, Fishbone, I+O Laboratory Tests 10/13/19 13:24 10/13/19 13:31 10/14/19 05:18 Vital Signs Date Time Temp Pulse Resp B/P (MAP) Pulse Ox O2 Delivery O2 Flow Rate FiO2 10/14/19 08:37 96 157/80 10/14/19 04:00 97.6 18 98 Room Air 10/13/19 06:00 4.0 I&O- Last 24 Hours up to 6 AM 10/14/19 06:00 Intake Total 1950 ml Output Total 3000 ml Balance -1050 ml BLANCA JI MD Oct 14, 2019 10:42
[2019-10-14 11:03] LABS: ALBUMIN 1.9 GM/DL (3.2-5.2); ALT/SGPT 28 U/L (12-78); BILIRUBIN,DIRECT 0.7 MG/DL (0.0-0.2); TOTAL PROTEIN 6.3 GM/DL (6.4-8.2)
[2019-10-14] MEDS: CEFDINIR 300 MG CAP (OMNICEF) PO SCH ×2 (11:50→22:01)
[2019-10-14] MEDS: metroNIDAZOLE (FLAGYL) 500 MG TAB PO SCH ×2 (12:59→22:01)
[2019-10-15] VITALS (7 sets, daily range): BP systolic 128–129; BP diastolic 62–78; O2SAT 92–94
[2019-10-15] MEDS: metroNIDAZOLE (FLAGYL) 500 MG TAB PO SCH (05:37)
[2019-10-15 05:42] LABS: BASO % 0.2 % (0.0-1.0); EOS # 0.1 10^3/uL (0.0-0.5); EOS % 0.6 % (0.0-3.0); HEMATOCRIT 33.7 % (36.0-47.0); HEMOGLOBIN 11.8 g/dl (12.0-15.5); LYMPH # 2.2 10^3/uL (1.5-5.0); LYMPH % 12.4 % (24.0-44.0); MEAN CORPUSCULAR HEMOGLOBIN 32.5 pg (27.0-33.0); MEAN CORPUSCULAR VOLUME 92.8 fl (80.0-96.0); MONO # 1.3 10^3/uL (0.0-0.8); MONO % 7.3 % (0.0-5.0); NEUTROPHILS # 13.6 10^3/uL (1.5-8.5); RED BLOOD COUNT 3.63 10^6/uL (4.00-5.40); WHITE BLOOD COUNT 17.5 10^3/uL (4.0-10.0)
[2019-10-15 05:50] LABS: PLATELET COUNT, AUTOMATED 50 10^3/uL (150-450)
[2019-10-15 06:07] LABS: ALBUMIN 2.1 GM/DL (3.2-5.2); ALT/SGPT 24 U/L (12-78); BILIRUBIN,DIRECT 0.7 MG/DL (0.0-0.2); BILIRUBIN,TOTAL 1.1 MG/DL (0.2-1.0); BLOOD UREA NITROGEN 25 MG/DL (7-18); C REACTIVE PROTEIN QUANTITATIV 9.19 MG/DL (0.00-0.30); CALCIUM LEVEL 8.3 MG/DL (8.8-10.2); CARBON DIOXIDE LEVEL 25 MEQ/L (21-32); CHLORIDE LEVEL 107 MEQ/L (98-107); CREATININE FOR GFR 0.87 MG/DL (0.55-1.30); GLOMERULAR FILTRATION RATE > 60.0 (>45); GLUCOSE, FASTING 122 MG/DL (70-100); MAGNESIUM LEVEL 1.9 MG/DL (1.8-2.4); SODIUM LEVEL 139 MEQ/L (136-145)
[2019-10-15] MEDS: CEFDINIR 300 MG CAP (OMNICEF) PO SCH (08:28)
[2019-10-15] MEDS: SIMVASTATIN 40 MG TAB PO SCH (08:29)
[2019-10-15] MEDS: FOLIC ACID 1 MG TAB PO SCH (08:29)
[2019-10-15] MEDS: amLODIPine 10 MG TAB PO SCH (08:30)
[2019-10-15] MEDS ORDERED: FLAG500T PO (09:44)
[2019-10-15] MEDS ORDERED: CEFD300CAP PO (09:44)
--- NOTE | 2019-10-15 10:38 | DS.PDOC ---
Discharge Summary General Date of Admission Oct 12, 2019 at 17:29 Date of Discharge 10/15/2019 Discharge Summary PROCEDURES PERFORMED DURING STAY: [None]. ADMITTING DIAGNOSES / DISCHARGE DIAGNOSES: Leukocytosis / Shortness of breath - possibly 2/2 viral illness, possibly 2/2 acalculous cholecystitis Elevated Bilirubin - possibly 2/2 acute cholecystitis, possibly 2/2 hemolysis? s/p PRASANTH - possibly 2/2 pre-renal etiology - 2/2 volume loss - 2/2 fevers Thrombocytopenia - possibly 2/2 severe infection, unlikely 2/2 TTP Normocytic anemia s/p Hypokalemia Hypertension DLP Rheumatoid arthritis DVT prophylaxis COMPLICATIONS/CHIEF COMPLAINT: Shortness of breath HISTORY OF PRESENT ILLNESS: Patient is a 64-year-old female with past medical history of hypertension, dyslipidemia and rheumatoid arthritis who presented to the emergency room after experiencing a week of fevers, severe chills and shortness of breath. Patient reported that last Monday (10/03) she had a sudden onset of fevers, shortness of breath and body chills. . She reported that she called telemedicine and was prescribed Tamiflu for suspected flu without testing. Patient completed a course of 5 days of Tamiflu. She continued to experience worsening fevers and progressive shortness of breath. Patient had seen urgent care on 10/11, and was prescribed Levaquin , Albuterol inhaler and Prednisone 10mg. She had taken all of this once at 10/11 AM, but failed to improve and came to the emergency room for further evaluation. Patient reports no recent travel and denies exposure dining with similar symptoms. HOSPITAL COURSE: Leukocytosis / Shortness of breath - possibly 2/2 viral illness, possibly 2/2 acalculous cholecystitis - Clinically patient has had significant improvement of her symptoms and physical is unrevealing - She has remained hemodynamically stable and has not developed a fever over the last 72 hours - Leukocytosis / CRP continue to trend down - Procalcitonin of 50.88 - UA without any significant signs of infection; urine culture negative - Respiratory panel 10/11: Negative; MRSA screen 10/11: negative - COVID19 - remain pending - Blood cultures 10/11: Negative at 48 hours - CXR 10/11: There is no acute cardiopulmonary disease. - CT chest 10/11: Likely sub-segmental atelectasis left upper lobe. No abnormal patchy ground-glass opacities - CXR 10/12 - report pending; currently appears relatively unchanged - c/w Cefdinir and Flagyl PO; s/p Ceftriaxone, Azithromycin & Flagyl IV (Antibiotic day #4) - Will have outpatient follow-up with Dr. Balta Roman within 7-14 days Elevated Bilirubin - possibly 2/2 acute cholecystitis, possibly 2/2 hemolysis? - CT abdomen / pelvis 10/11: 1. 4 mm calculus in the urinary bladder just distal to the left ureterovesical junction and mild left hydroureteronephrosis. 2. Mild inflammatory fat stranding around the gallbladder, which can be seen with cholecystitis. 3. Small bilateral fat containing indirect inguinal hernias. - US liver 10/11: 1. Fatty liver. 2. Normal ultrasound of the gallbladder. 3. Mild left hydronephrosis. - Haptoglobin / jasper - Pending - c/w intra-abdominal coverage of infection (See above) - Dr. Klein on consult; discussed case - unlikely 2/2 cholecystis s/p PRASANTH - possibly 2/2 pre-renal etiology - 2/2 volume loss - 2/2 fevers - Patient baseline creatinine of 0.5; creatinine on admission of 1.7 - Cr has trended back down to baseline - Will hold nephrotoxic medications - Renal US 10/11: with evidence of mild L hydronephrosis - s/p IV fluid hydration Thrombocytopenia - possibly 2/2 severe infection, unlikely 2/2 TTP - No evidence of bleeding - Fibrinogen level noted to be elevated - LDH levels normal - Will treat for possible infection (As stated above) - Dr. Brian Coello on consultation; will have outpatient follow up if platelet count remains persistently low; will have repeat lab work completed Normocytic anemia - Hg appears to be lower compared to baseline from 11/2014 of 13.7 - Hg has remained stable with IV fluid hydration - Will continue to monitor at this time s/p Hypokalemia Hypertension - BP well controlled - Will resume Chlorthalidone / Benazepril at this time - c/w Amlodipine DLP - c/w Simvastatin Rheumatoid arthritis - Will continue to hold Hydroxychloroquine / Methotrexate at this time DVT prophylaxis - c/w TEDs / Sequentials (re: Thrombocytopenia) DISCHARGE MEDICATIONS: Please see below. ALLERGIES: Please see below. PHYSICAL EXAMINATION ON DISCHARGE: Vitals (See below) General: Lying in bed, no acute distress, comfortable, AAOx3 HEENT: NC, AT CVS: +S1S2 Lungs: Auscultation without rhonchi, wheezing or crackles. Air entry appears to be fair bilaterally Abdomen: Physical is without any palpable distention or tenderness, remains soft, obese Extremities: LE do reveal pitting edema bilaterally at 1+, - Calf tenderness LABORATORY DATA: Please see below. ACTIVITY: [As tolerated]. DISCHARGE PLAN: Follow-up with Dr. Scruggs, and Dr. Brian Coello within 7-14 days Remain under quarantine for 14 days Remain compliant with treatment plan and medications Return to the ER if you experience any problems DISPOSITION: Home DISCHARGE CONDITION: [Stable]. TIME SPENT ON DISCHARGE: 35 minutes Vital Signs/I&Os Vital Signs Date Time Temp Pulse Resp B/P (MAP) Pulse Ox O2 Delivery O2 Flow Rate FiO2 10/15/19 08:34 98.4 91 18 129/78 (95) 96 Room Air 10/13/19 06:00 4.0 I&O- Last 24 Hours up to 6 AM 10/15/19 05:59 Intake Total 720 ml Balance 720 ml Laboratory Data Labs 24H Laboratory Tests 2 10/15/19 05:30: Immature Granulocyte % (Auto) 1.5, Neutrophils (%) (Auto) 78.0H, Lymphocytes (%) (Auto) 12.4L, Monocytes (%) (Auto) 7.3H, Eosinophils (%) (Auto) 0.6, Basophils (%) (Auto) 0.2, Neutrophils # (Auto) 13.6H, Lymphocytes # (Auto) 2.2, Monocytes # (Auto) 1.3H, Eosinophils # (Auto) 0.1, Basophils # (Auto) 0.0, Nucleated Red Blood Cells % (auto) 0.0, Immature Platelet Fraction 13.7H, Anion Gap 7L, Glomerular Filtration Rate > 60.0, Calcium Level 8.3L, Magnesium Level 1.9, Total Bilirubin 1.1H, Direct Bilirubin 0.7H, Aspartate Amino Transf (AST/SGOT) 12, Alanine Aminotransferase (ALT/SGPT) 24, Alkaline Phosphatase 192H, C- Reactive Protein, Quantitative 9.19H, Total Protein 6.0L, Albumin 2.1L, Albumin/Globulin Ratio 0.54L CBC/BMP Laboratory Tests 10/15/19 05:30 Microbiology Microbiology 3/14/20 Virus Detection (PCR), Received Pending 10/12/19 Urine Culture - Final, Complete 10/12/19 Respiratory Virus (PCR), Received Pending 10/12/19 Respiratory Virus Panel (PCR) (MANSI) - Final, Complete 10/12/19 Blood Culture - Preliminary, Resulted No Growth after 48 hours. All Specime... 10/12/19 Blood Culture - Preliminary, Resulted No Growth after 48 hours. All Specime... 10/12/19 Group A Streptococcus Screen (MANSI) - Final, Complete 10/12/19 Group A Streptococcus Screen (MANSI) - Final, Complete Discharge Medications Scheduled Amlodipine Besylate/Benazepril (Lotrel 10-40 mg Capsule) 1 Each Capsule, 1 CAP PO DAILY, (Reported) Cefdinir (Cefdinir) 300 Mg Capsule, 300 MG PO BID Chlorthalidone (Chlorthalidone) 25 Mg Tablet, 25 MG PO DAILY, (Reported) Folic Acid (Folic Acid) 1 Mg Tablet, 1 MG PO DAILY, (Reported) Metronidazole (Flagyl) 500 Mg Tablet, 500 MG PO Q8H Simvastatin (Simvastatin) 40 Mg Tablet, 40 MG PO DAILY, (Reported) Allergies Coded Allergies: No Known Allergies (Unverified , 10/12/19) BLANCA JI MD Oct 15, 2019 10:38
[2019-10-15 10:46] LABS: ALBUMIN % 40.5 % (55.8-66.1); ALPHA-1-GLOBULIN % 11.3 % (2.9-4.9); ALPHA-2-GLOBULINS % 16.3 % (7.1-11.8)
[2019-10-15 10:47] LABS: ALBUMIN 2.27 GM/DL (3.29-5.55); ALPHA-1-GLOBULINS 0.63 GM/DL (0.17-0.41); ALPHA-2-GLOBULINS 0.91 GM/DL (0.42-0.99); BETA-1-GLOBULINS 0.47 GM/DL (0.28-0.60); BETA-1-GLOBULINS % 8.4 % (4.7-7.2); BETA-2-GLOBULINS % 7.1 % (3.2-6.5); GAMMA GLOBULIN % 16.4 % (11.1-18.8); GAMMA GLOBULINS 0.92 GM/DL (0.65-1.58)
[2019-10-16 14:07] LABS: BETA 2 MICROGLOBULIN 3.6 mg/L (0.6-2.4); COMPLEMENT TOTAL (CH50) > 60 U/mL (>41); HOMOCYST(E)INE SERUM 9.3 umol/L (0.0-17.2); KAPPA/LAMBDA RATIO SERUM 1.49 (0.26-1.65); Methylmalonic Acid 331 nmol/L (0-378)
[2019-10-17 00:10] LABS: FREE KAPPA LIGHT CHAINS URINE 160.63 mg/L (0.63-113.79); FREE LAMBDA LIGHT CHAINS URINE 28.19 mg/L (0.47-11.77); KAPPA/LAMBDA RATIO URINE 5.7 (1.03-31.76)
== END 2019-10-15 14:42 | disposition home or self-care (01) | DRG 445 ==
LOC: M ED 13:38 → M ED INP 17:29 → ENRESERVDT 19:03 → ENRESERVTM 19:03 → M PCU 20:15
PROVIDERS: ADMIT Internal Medicine; ATTEND Internal Medicine
DX: K81.9 Cholecystitis, unspecified (principal); N17.9 Acute kidney failure, unspecified; B34.9 Viral infection, unspecified; D72.829 Elevated white blood cell count, unspecified; E87.6 Hypokalemia; D69.6 Thrombocytopenia, unspecified; D64.9 Anemia, unspecified; I10 Essential (primary) hypertension; M06.9 Rheumatoid arthritis, unspecified; Z79.899 Other long term (current) drug therapy; E78.5 Hyperlipidemia, unspecified

== ENCOUNTER → 2019-10-12 | Outpatient (CLI) | payer OTHER ==
[~2019-10-12] MED LIST: ALBU8.5H PO; CEFD300CAP PO; CHLO125TA PO; FLAG500T PO; FOLI1TAB11 PO; HYDR200T3 PO; LEVO750T13 PO; LOTR10CA2 PO; METH2.5T48 PO; PRED10TA2 PO; SIMV40TA20 PO; SULI200T PO
--- NOTE | 2019-10-12 13:45 | REP ---
REASON: Cough and fever. COMPARISON: None. TWO-VIEW CHEST: FINDINGS: The superior mediastinal structures are midline. The cardiac silhouette is unremarkable in size, shape, and position. The diaphragmatic surfaces of the lungs are regular, and the costophrenic angles are clear. The pulmonary bass are clear. The imaged osseous structures are intact. IMPRESSION: There is no acute cardiopulmonary disease. Unreviewed
== END ==
LOC: M ADAMS 09:48
PROVIDERS: ATTEND Physician Assistant
DX: R05 Cough (principal); R50.9 Fever, unspecified

== ENCOUNTER → 2019-10-12 | Outpatient (CLI) | payer OTHER ==
[2019-10-12 10:59] LABS: HEMATOCRIT 32.8 % (36.0-47.0); HEMOGLOBIN 11.4 g/dl (12.0-15.5); MEAN CORPUSCULAR HEMOGLOBIN 32.2 pg (27.0-33.0); MEAN CORPUSCULAR HGB CONC 34.8 g/dl (32.0-36.5); MEAN CORPUSCULAR VOLUME 92.7 fl (80.0-96.0); RED BLOOD COUNT 3.54 10^6/uL (4.00-5.40); WHITE BLOOD COUNT 28.3 10^3/uL (4.0-10.0)
[2019-10-12 11:26] LABS: BILIRUBIN,TOTAL 4.7 MG/DL (0.2-1.0); CALCIUM LEVEL 8.3 MG/DL (8.8-10.2); CREATININE FOR GFR 1.7 MG/DL (0.55-1.30); GLOMERULAR FILTRATION RATE 32.4 (>45); POTASSIUM SERUM 3.4 MEQ/L (3.5-5.1); TOTAL PROTEIN 5.6 GM/DL (6.4-8.2)
[2019-10-12 11:32] LABS: PLATELET COUNT, AUTOMATED 49 10^3/uL (150-450)
[2019-10-12 11:34] LABS: LYMPHOCYTES 3 % (16-44); MONOCYTES 3 % (0-5); NEUTROPHILS 92 % (28-66); PLATELET ESTIMATE MARKED DECREASE (NORMAL)
== END ==
LOC: M LABDRWAD 09:45
PROVIDERS: ATTEND Physician Assistant
DX: R05 Cough (principal); R50.9 Fever, unspecified

== ENCOUNTER → 2020-07-27 | Outpatient (REF) | payer OTHER | LOC: M LAB REF 17:24 | PROVIDERS: ATTEND Physician Assistant | DX: J06.9 Acute upper respiratory infection, unspecified (principal) ==

== ENCOUNTER → 2021-04-06 | Outpatient (CLI) | payer OTHER ==
--- NOTE | 2021-04-06 13:34 | REPMRS ---
Patient History The patient states she has not had a clinical breast exam in over a year. Family history of breast cancer at age 50 or over in maternal aunt, colorectal cancer at age 50 or over in maternal grandmother, colorectal cancer in maternal grandfather, colorectal cancer at age 50 or over in maternal cousin. Patient states no breast complaints today. Patient has signed MRS History Sheet. Digital Woman Screen Mammo: April 06, 2021 - Exam #: [id number] Bilateral CC and MLO view(s) were taken. Technologist: Tamia Baker, Technologist Prior study comparison: May 22, 2018, bilateral digital woman screen mammo performed at [facility]. December 15, 2015, digital woman screen mammo performed at [facility]. FINDINGS: There are scattered fibroglandular densities. Screening. Digital screening (2D) mammography was performed bilaterally in the CC and MLO projections. Additionally, breast tomosynthesis (3D mammography) was performed bilaterally in the CC and MLO projections. Todays exam was compared to the prior exam/exams. By history, the patient has no complaints of a palpable breast abnormality or other significant breast complaints. The breasts are unchanged in size and shape. There are no ying-soft tissue densities or spiculated masses. There is no internal architectural distortion. Once again, stable benign appearing calcifications are seen.There are no suspicious ying-calcific clusters. Skin thickening or nipple retraction is not present. IMPRESSION: BI-RADS Category 2- Benign Findings. There is no evidence of malignant alteration of the breasts. Followup examination recommended in one year. The Volpara volumetric breast density category is B, there are scattered areas of fibroglandular densities. This mammogram was read with the assistance of [facility],an FDA approved computer aided detection system for mammography. The lifetime Tyrer-Cuzick score is 12.2 % Negative x-ray reports should not delay surgical consultation if a dominant or clinically suspicious mass is present. Not all breast cancers can be identified by mammography. Therefore, we recommend that you continue to perform regular breast self-examination and physical examination and then promptly contact your physician of any concerns or changes. Adenosis and dense breasts may obscure an underlying neoplasm. Assessment: BI-RADS/ACR category 2 mammogram. Benign Findings. Recommendation Routine screening mammogram of both breasts in 1 year. Electronically Signed By: Jonnathan Matos DO 04/06/21 [id number]
== END ==
LOC: M WHC 12:27
PROVIDERS: ATTEND Family Medicine
DX: Z12.31 Encounter for screening mammogram for malignant neoplasm of breast (principal)

== ENCOUNTER → 2021-05-12 | Outpatient (CLI) | payer OTHER ==
--- NOTE | 2021-05-12 13:13 | DEXAMM ---
INDICATION: [facility] SCREEN FOR OSTEOPOROSIS. COMPARISON: 04/27/2010. TECHNIQUE: Bone density was measured using dual-energy x-ray absorptiometry (DEXA). FINDINGS: AP SPINE L1-L4 BMD 1.396 g/cm2 Young Adult T-Score 1.6 Age Matched Z-Score 3.1. LT FEMUR, TOTAL BMD 1.170 g/cm2 Young Adult T-Score 1.3 Age Matched Z-Score 2.4. LT NECK BMD 1.126 g/cm2 Young Adult T-Score 0.6 Age Matched Z-Score 2.1. RT FEMUR, TOTAL BMD 1.197 g/cm2 Young Adult T-Score 1.5 Age Matched Z-Score 2.6. RT NECK BMD 1.046 g/cm2 Young Adult T-Score 0.1 Age Matched Z-Score 1.5. IMPRESSION: There is normal bone density of the spine. There is normal bone density of the left hip. There is normal bone density of the right hip. The density of the spine has decreased 3.5% since the initial exam on 04/27/2010. The density of the left hip has decreased 0.2% since initial exam on 04/27/2010. The density of the right hip has increased 0.2% since the initial exam on 04/27/2010. FOLLOW-UP: Recommendation for the next bone density exam: 5 years. <Electronically signed by Slava Roy > 05/12/21 [id number]
== END ==
LOC: M WHC 09:59
PROVIDERS: ATTEND Family Medicine
DX: Z13.820 Encounter for screening for osteoporosis (principal)

== ENCOUNTER → 2022-06-07 | Outpatient (CLI) | payer OTHER ==
[~2022-06-07] MED LIST changes: +LEVO1TAB40 PO; -LEVO750T13 PO
== END ==
LOC: M WHC 10:26
PROVIDERS: ATTEND Family Medicine
DX: Z12.31 Encounter for screening mammogram for malignant neoplasm of breast (principal)

== ENCOUNTER → 2022-12-15 | Outpatient (CLI) | payer OTHER | LOC: M PLAIMG 14:07 | PROVIDERS: ATTEND Nurse Practitioner Adult Health | DX: M47.26 Other spondylosis with radiculopathy, lumbar region (principal); M47.27 Other spondylosis with radiculopathy, lumbosacral region; M79.605 Pain in left leg ==

== ENCOUNTER → 2023-01-24 | Outpatient (CLI) | payer OTHER ==
[~2023-01-24] MED LIST changes: -HYDR200T3 PO; +HYDR200T46 PO; +PROHANCE 279.3MG/ML 15ML VIAL ONE; +PROHANCE 279.3MG/ML 5ML VIAL ONE
== END ==
LOC: M PLAIMG 09:40
PROVIDERS: ATTEND Nurse Practitioner Adult Health
DX: D48.7 Neoplasm of uncertain behavior of other specified sites (principal)
CPT/HCPCS: 73720; A9576

== ENCOUNTER → 2023-02-21 | Outpatient (REF) | payer OTHER ==
[~2023-02-21] MED LIST changes: +ACET-683 PO; +GABA-282; +HYDR200T46; +METH2.5T48; -PROHANCE 279.3MG/ML 15ML VIAL ONE; -PROHANCE 279.3MG/ML 5ML VIAL ONE; +SULI200T; +VITA1CAP25; +VITMTA PO
== END ==
LOC: M SFHCWAGY 10:11
PROVIDERS: ATTEND Specialist
DX: Z12.4 Encounter for screening for malignant neoplasm of cervix (principal); N94.89 Other specified conditions associated with female genital organs and menstrual cycle; R87.610 Atypical squamous cells of undetermined significance on cytologic smear of cervix (ASC-US)
CPT/HCPCS: 87624; 88305; G0123

== ENCOUNTER → 2023-02-23 | Outpatient (CLI) | payer OTHER ==
[~2023-02-23] MED LIST changes: +GASTROGRAFIN SOLUTION 30ML As Ordered ONE; +ISOVUE-370 76% 100ML VIAL As Ordered ONE
== END ==
LOC: M RAD 09:57
PROVIDERS: ATTEND Internal Medicine Medical Oncology
DX: R93.6 Abnormal findings on diagnostic imaging of limbs (principal)
CPT/HCPCS: 71260; 74177; Q9963; Q9967

== ENCOUNTER → 2023-03-03 | Outpatient (CLI) | payer OTHER ==
[~2023-03-03] MED LIST changes: -GASTROGRAFIN SOLUTION 30ML As Ordered ONE; -ISOVUE-370 76% 100ML VIAL As Ordered ONE
== END ==
LOC: M WHC 08:36
PROVIDERS: ATTEND Specialist
DX: N94.89 Other specified conditions associated with female genital organs and menstrual cycle (principal)

== ENCOUNTER → 2023-11-14 | Outpatient (CLI) | payer OTHER ==
[~2023-11-14] MED LIST changes: +THERTAB52 PO; +VITA100093 PO
== END ==
LOC: M PLAIMG 12:02
PROVIDERS: ATTEND Nurse Practitioner Adult Health
DX: J20.9 Acute bronchitis, unspecified (principal)

== ENCOUNTER 2023-12-13 10:23 | Day surgery (SDC) | payer OTHER ==
[~2023-12-13] VITALS: Ht 160 cm; Wt 107.0 kg
[2023-12-13 11:05] LABS: HEMATOCRIT 42.5 % (36.0-47.0); MEAN CORPUSCULAR HEMOGLOBIN 32.8 pg (27.0-33.0); MEAN CORPUSCULAR HGB CONC 35.3 g/dl (32.0-36.5); PLATELET COUNT, AUTOMATED 243 10^3/uL (150-450); RED BLOOD COUNT 4.57 10^6/uL (4.00-5.40); WHITE BLOOD COUNT 9.7 10^3/uL (4.0-10.0)
[2023-12-13] MEDS ORDERED: fentaNYL 100 MCG/2 ML INJECTION As Ordered ONE (11:26)
[2023-12-13] MEDS ORDERED: LIDOCAINE 2% 100MG/5ML SDV (FOR ANES.) As Ordered ONE (11:27)
[2023-12-13] MEDS ORDERED: ACETAMINOPHEN 1000MG 100ML IV BAG As Ordered ONE (11:27)
[2023-12-13] MEDS ORDERED: propofoL 200 MG/20 ML VIAL As Ordered ONE (11:27)
[2023-12-13] MEDS ORDERED: MIDAZOLAM INJ 2MG/2ML VIAL As Ordered ONE (11:27)
[2023-12-13] MEDS ORDERED: KETOROLAC 60MG 2ML VIAL As Ordered ONE (11:31)
[2023-12-13] MEDS ORDERED: ONDANSETRON 4MG 2ML VIAL As Ordered ONE (11:31)
[2023-12-13] MEDS: LIDOCAINE 1% MDV 20ML VIAL As Ordered ONE (12:45)
[2023-12-13 13:12] VITALS: BP 135/90; TEMP 97.5; O2SAT 97
== END 2023-12-13 13:29 | disposition home or self-care (01) ==
LOC: M SDC 10:23
PROVIDERS: ATTEND Specialist
DX: N84.0 Polyp of corpus uteri (principal); I10 Essential (primary) hypertension; E78.5 Hyperlipidemia, unspecified; J30.2 Other seasonal allergic rhinitis; Z79.899 Other long term (current) drug therapy; Z92.21 Personal history of antineoplastic chemotherapy
CPT/HCPCS: 36415; 58558; 85027; 88305; J0131; J1885; J2250; J2405; J3010

== ENCOUNTER → 2024-04-02 | Outpatient (CLI) | payer OTHER | LOC: M PLAIMG 10:21 | PROVIDERS: ATTEND Internal Medicine Pulmonary Disease | DX: R06.02 Shortness of breath (principal); R91.8 Other nonspecific abnormal finding of lung field ==

== ENCOUNTER → 2024-11-26 | Outpatient (CLI) | payer OTHER ==
[~2024-11-26] MED LIST changes: +GABA-1172; -GABA-282
== END ==
LOC: M WHC 12:44
PROVIDERS: ATTEND Nurse Practitioner Adult Health
DX: Z12.31 Encounter for screening mammogram for malignant neoplasm of breast (principal)